=== PATIENT | male | born 1990 | race Caucasian/White ===

== ENCOUNTER 2020-09-24 22:13 | Emergency (ER) | payer SELFPAY ==
[2020-09-24] MEDS ORDERED: predniSONE 20 MG TAB ONE (22:25)
[2020-09-24] MEDS ORDERED: Albuterol 200 PUFF (6.7GM INHALER) ONE (22:53)
== END 2020-09-24 23:15 | disposition home or self-care (01) ==
LOC: BURERS 22:13
DX: J45.901 Unspecified asthma with (acute) exacerbation (principal); Z87.891 Personal history of nicotine dependence
CPT/HCPCS: J7512; J7620